=== PATIENT | female | born 1975 | race Caucasian/White ===

== ENCOUNTER 2017-01-02 15:06 | Emergency (ER) | payer OTHER ==
[2017-01-02 15:07] VITALS: BMI 25.6
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
[2017-01-02 16:31] VITALS: BP 100/80; PULSE 78; RESP 18; TEMP 98.4
[2017-01-02 18:19] VITALS: O2SAT 96
== END 2017-01-02 16:43 | disposition home or self-care (01) ==
LOC: C.ER 15:06
DX: S73.102A Unspecified sprain of left hip, initial encounter (principal); S33.5XXA Sprain of ligaments of lumbar spine, initial encounter; V89.2XXA Person injured in unspecified motor-vehicle accident, traffic, initial encounter
CPT/HCPCS: 72100; 73502; 96372; 99284; J1885